=== PATIENT | female | born 1950 | race Caucasian/White ===

== ENCOUNTER 2018-09-12 05:35 | Day surgery (SDC) | payer MEDICARE, OTHER ==
[~2018-09-12] VITALS: Ht 167.6 cm; Wt 69.0 kg
[~2018-09-12 05:35] MED LIST: ASPIR-LOW81 MG PO; FISH OIL 1,0001 EAC3 PO; ONE DAILY MULT1 EAC1 PO; TYLENOL WITH C1 EACH PO; VITAMIN D31000 UNI1 PO; ZINC50 M1 PO
--- NOTE | 2018-09-12 09:02 | NUR ---
09/12/18 0902 Reny Nugent 0847 PT ARRIVES TO PACU, ALERT. VITAL SIGNS STABLE. LR INFUSING. PT DENIES PAIN OR NAUSEA AT THIS TIME. ABD SOFT, DRESSINGS IN PLACE, NO DRAINAGE NOTED. 0853 PT PLACED ON ROOM AIR AT THIS TIME. SATS MAINTAINING HIGH 90S. 0855 PT TEARFUL, DENIES PAIN. CONCERNED ABOUT . PT IS REASSURED. 0900 PT C/O BEING COLD, WARM BLANKETS AND ALY HUGGER APPLIED.
--- NOTE | 2018-09-12 09:21 | NUR ---
PT IS BACK TO FROM PACU, AWAKE AND ALERT. SHE IS TEARFUL UPON HER ARRIVAL, REPORTING THAT HER PAIN HAS INCREASED TO A 5/10. SHE IS C/O BEING COLD AND IS VERBALLY SHIVERING. BEAR HUGGER IS TURNED ON TO HELP WARM HER. IS AT THE BEDSIDE. WATER ON BEDSIDE TABLE. CALL LIGHT WITHIN REACH. NO ADDITIONAL NEEDS AT THIS TIME. WILL CONTINUE TO MONITOR.
--- NOTE | 2018-09-12 10:19 | NUR ---
PT REPORTS THAT THE PAIN MEDICINE IS HELPING AND HER PAIN LEVEL IS COMING DOWN. IS STILL AT THE BEDSIDE. PT IS TOLERATING SIPS OF WATER. NO ADDITIONAL NEEDS AT THIS TIME. DC CRITERIA IS DISCUESSED. WILL CONTINUE TO MONITOR.
--- NOTE | 2018-09-12 10:59 | OR ---
[facility] [address], [place] [address] Signed DATE OF OPERATION: 09/12/2018 SURGEON: Reginald Woodson MD PREOPERATIVE DIAGNOSIS: Acute on chronic cholecystitis. POSTOPERATIVE DIAGNOSES: 1. Acute on chronic cholecystitis. 2. Cholesterolosis. PROCEDURE: Laparoscopic cholecystectomy with intraoperative cholangiogram. ESTIMATED BLOOD LOSS: Minimal. FINDINGS: The intraoperative cholangiogram was unremarkable. There were no filling defects. No evidence of a choledochal cyst. The contrast flowed readily into the duodenum and rapidly filled her duodenal diverticula. We could see food debris in the duodenal diverticula. We could also see both her duodenum diverticula just to the right of the stomach as it came around to the duodenum. The gallbladder itself was quite thin and lying over top of these two duodenal diverticula, although slightly lateral. Unfortunately, the adhesions between the gallbladder and duodenal diverticula were quite thin and filamentous and easily taken down bluntly. The gallbladder itself was long, somewhat thin, chronically inflamed, and quite floppy. She did have some chronic scarring along the edge of the liver as well. INDICATIONS: Cash is a 67-year-old female, who is generally quite healthy. She has been having pain in the right upper quadrant radiating through to her back and along the right lateral costal margin. She had been to her primary care provider. Her urinalysis and her laboratory work were all negative. The right upper quadrant ultrasound showed the liver and gallbladder, common bile duct all unremarkable. No evidence of any stones. Possibly some sludge. Her symptoms continued even with Tylenol with Codeine. She therefore had a CT scan of the abdomen and pelvis and again the liver and gallbladder appear fine, but there appears to be two cystic structures near the liana hepatis with air-fluid levels. There are also closely apposed to the gallbladder, but seemed to be more associated with the duodenum. The transverse colon seemed uninvolved. There were Electronically Signed By: REGINALD WOODSON MD 09/12/18 1059 PATIENT NAME: CASH MOON OPERATIVE REPORT DATE OF : 46 REPORT #: [id number] PHYSICIAN: REGINALD WOODSON MD PCP: NEETA VU PAC REPORT IS CONFIDENTIAL AND NOT TO BE RELEASED WITHOUT AUTHORIZATION [facility] [address], [place] [address] Signed no inflammatory changes in the area. Followup HIDA scan was performed and the liver was unremarkable along with the main bile duct. Specifically, no evidence of choledochal cyst. The gallbladder filled, but the ejection fraction was only 8%. Drinking the Ensure did not reproduce her symptoms. We then had her undergo upper GI small bowel follow-through. The stomach and pyloric bulb were completely unremarkable. She indeed has multiple duodenal diverticula in the second portion of the duodenum. The largest is 7 cm in diameter. She also has numerous diverticula in the jejunum and then several smaller diverticula in her ileum. In the meantime, her pain has been intermittent and recurring requiring Tylenol with Codeine. I had met with Cash and her in the office. We had a long discussion regarding her current findings. I gave them a [employer] brochure on the gallbladder. I explained that duodenal diverticula have been present for many many years. I felt like her symptoms were more related to her gallbladder. I did consult with Dr. Darrian Tam at [facility]. We were both in agreement. It seemed very reasonable to remove her gallbladder and if her symptoms would persist, then we would have to more closely address the duodenal diverticula. Cash and her were in agreement. They understand the location and function of the gallbladder. They understand laparoscopic versus open cholecystectomy. There is risk of surgery including, but not limited to bleeding, infection, scarring, change in contour of the skin, damage to the bowel, damage to main bile duct, incisional hernias as well as damage and/or concerns over the duodenal diverticula. They had expressed understanding and wished to proceed. PROCEDURE NOTE: I have met with Cash and her in our preop area. All their questions were answered. After this, she was taken into the operating room and placed in a supine position under general endotracheal tube anesthesia. She was given preoperative antibiotics along with subcutaneous heparin. SCDs were utilized. Once again, her preoperative laboratory work was unremarkable. She was then prepped and draped in the usual sterile fashion. All trocars were placed in usual positions under direct visualization of camera without difficulty. We had taken multiple pictures throughout the surgery for photodocumentation. It was very easy to follow the stomach around to the pyloric bulb and then we could see her two large duodenal diverticula. The gallbladder was just lateral to that and the gallbladder was somewhat thin and somewhat flat over this area. The gallbladder was elevated in the right upper quadrant. Unfortunately, the adhesions between the duodenal diverticula and the gallbladder were quite thin and filamentous. There were easily taken down mostly with blunt dissection. We used a little bit of cautery down around the neck of the gallbladder. The cystic artery was identified, clipped and divided. The intraoperative cholangiocatheter was inserted into the common bile duct. The intraoperative cholangiogram was found to be unremarkable. Specifically, no evidence of any cystic areas in the cystic duct or the common bile duct. The contrast flowed readily into the duodenum and we could see the contrast filling into the duodenal diverticula. There appears to be some debris in the Electronically Signed By: REGINALD WOODSON MD 09/12/18 1059 PATIENT NAME: CASH MOON OPERATIVE REPORT DATE OF : 46 REPORT #: [id number] PHYSICIAN: REGINALD WOODSON MD PCP: NEETA VU PAC REPORT IS CONFIDENTIAL AND NOT TO BE RELEASED WITHOUT AUTHORIZATION [facility] [address], [place] [address] Signed more proximal duodenal diverticulum. After this, the cystic duct stump was secured with a PDS Endoloop and 2 clips were placed on the cystic duct stump to won its location. There was also a small posterior branch of the cystic artery coming up along the gallbladder and 2 clips were placed on this to secure this small branch. Fortunately, her gallbladder was not deep inside her liver and it was way out on the anterior edge of her liver. It only took a few minutes to remove that with the help of the cautery and we placed that into an EndoCatch bag. After this, the right upper quadrant was irrigated and suctioned out until clear. We then used our laparoscopic suturing device to pass 0 Vicryl suture on either side of the fascia of the subxiphoid trocar site. This was tied down to close this fascia primarily. All trocars were removed and the gas was allowed to escape. We then closed the supraumbilical trocar site with interrupted simple and [id number] 0 Vicryl sutures. Local anesthetic was copiously injected into all trocar sites. Each trocar site was irrigated and suctioned out until clear. The skin and dermis of each trocar site were closed with interrupted 3-0 subcuticular Monocryl sutures. Dry gauze and tape were applied to all incisions. In the meantime, our circulating nurse opened the gallbladder on the back table and had significant cholesterolosis. Again, pictures were taken for photodocumentation. After this, Cash was awakened from anesthesia, extubated in the OR, and taken to recovery room in stable condition. Reginald Woodson MD [facility]/MODL /[id number] cc: LUZ Angulo MD Brett Sheppard, MD Copies: NEETA VU ANDREW L MD Electronically Signed By: REGINALD WOODSON MD 09/12/18 1059 PATIENT NAME: CASH MOON OPERATIVE REPORT DATE OF : 46 REPORT #: [id number] PHYSICIAN: REGINALD WOODSON MD PCP: NEETA VU REPORT IS CONFIDENTIAL AND NOT TO BE RELEASED WITHOUT AUTHORIZATION [facility] [address] [place] [id number] Signed DARRIAN DAVID MD ~ Electronically Signed By: REGINALD WOODSON MD 09/12/18 1059 PATIENT NAME: CASH MOON OPERATIVE REPORT DATE OF : 46 REPORT #: [id number] PHYSICIAN: REGINALD WOODSON MD PCP: NEETA VU PAC REPORT IS CONFIDENTIAL AND NOT TO BE RELEASED WITHOUT AUTHORIZATION
--- NOTE | 2018-09-12 11:20 | NUR ---
IN TO CHECK ON PT. VITALS OBTAINED. PT STATES HER PAIN "SUBSIDED A LITTLE." ICE WATER REFILLED. AT BEDSIDE.
--- NOTE | 2018-09-12 12:12 | NUR ---
LE 1145: PT REQUESTS TO USE THE RESTROOM. SHE IS ASSISTED UP OOB, STANDBY ASSIST TO THE RESTROOM. SHE IS ABLE TO VOID QS SUFFICIENT, AND WALKS HERSELF BACK TO HER ROOM. PT INIDICATES THAT SHE WOULD LIKE TO GO HOME. SHE HAS BEEN ABLE TO TOLERATE JELLO AND WATER WITHOUT ISSUE. SHE HAS MET ALL DC CRITERIA. SHE IS EDUCATED ON HOW BEST TO DRESS HERSELF.
--- NOTE | 2018-09-12 12:14 | NUR ---
PT IS GIVEN VERBAL DC INSTRUCTIONS. THE PT AND HER VERBALIZE UNDERSTANDING. PT'S , KAYLEIGH, GOES TO GRAB THE VEHICLE. PT IS TAKEN TO VEHICLE VIA WC, SHE IS ABLE TO TRANSFER HERSELF FROM WC TO CAR.
== END 2018-09-12 12:00 | disposition home or self-care (01) ==
LOC: DS 05:35
PROVIDERS: Colon & Rectal Surgery
PROC: BF13YZZ Fluoroscopy of Gallbladder and Bile Ducts using Other Contrast (ICD-10-PCS; 2018-09-12)
PROC: 0FT44ZZ Resection of Gallbladder, Percutaneous Endoscopic Approach (ICD-10-PCS; principal; 2018-09-12 06:45)
DX: K81.2 Acute cholecystitis with chronic cholecystitis (principal); K57.10 Diverticulosis of small intestine without perforation or abscess without bleeding; K82.8 Other specified diseases of gallbladder; Z79.899 Other long term (current) drug therapy; Z79.82 Long term (current) use of aspirin
CPT/HCPCS: 00790; 74300; 88304; J0360; J0690; J1100; J1170; J1644; J1885; J2250; J2405; J2704; J3010; J7120; Q9967

== ENCOUNTER 2021-11-22 10:40 | Day surgery (SDC) | payer MEDICARE, OTHER ==
[~2021-11-22] VITALS: Ht 167.6 cm; Wt 72.7 kg
--- NOTE | ~2021-11-22 | OR ---
[facility] [address], [place] [address] Draft DATE OF OPERATION: 11/22/2021 SURGEON: Renae Sanchez MD PREOPERATIVE DIAGNOSIS: Trigger fingers, left ring and small. POSTOPERATIVE DIAGNOSIS: Trigger fingers, left ring and small. PROCEDURE PERFORMED: Trigger finger release, left ring and small. LAUNDERER HAND: None. ANESTHESIA: Amanda block. TOURNIQUET TIME: 20 minutes. BRIEF HISTORY: Cash is a 71-year-old female with locking in her left hand. She had prior trigger finger releases to other digits with good results. Risks and benefits of operative treatment were discussed with her, she elected to proceed. DESCRIPTION OF PROCEDURE: Once consent was obtained, she was taken to the operating room. After adequate anesthesia, she was placed on the hand table. The arm was prepped and draped in a standard sterile fashion. A 1 cm incision was made in the distal palmar crease. Under loupe magnification, dissection was made down to the flexor tendon sheath. The A1 alondra was identified and dissected free of overlying soft tissue was then released using tenotomy scissors. The wound was copiously irrigated with normal saline and the small finger was approached in a similar fashion and released. Both were then irrigated, closed with 3-0 nylon and injected with 4 mL of 0.25% plain Marcaine. They were then dressed with bacitracin, Adaptic, 4 x 8's, and gauze. She tolerated the procedure well. All sponge, needle, and instrument counts were correct. PATIENT NAME: CASH MOON OPERATIVE REPORT DATE OF : 46 REPORT #: [id number] PHYSICIAN: RENAE SANCHEZ MD PCP: EDWIN ORR PA-C REPORT IS CONFIDENTIAL AND NOT TO BE RELEASED WITHOUT AUTHORIZATION [address] [place], [place] [address] Draft Renae Sanchez MD BA/DONNA /[id number] Copies: ~ PATIENT NAME: CASH MOON OPERATIVE REPORT DATE OF : 46 REPORT #: [id number] PHYSICIAN: RENAE SANCHEZ MD PCP: EDWIN ORR PA-C REPORT IS CONFIDENTIAL AND NOT TO BE RELEASED WITHOUT AUTHORIZATION
[~2021-11-22 10:40] MED LIST changes: +HYDROCODON-ACE1 EA10 PO; +VITAMIN D325 MC2 PO
[2021-11-22] MEDS ORDERED: HYDROCODON-ACE1 EA10 PO (11:52)
--- NOTE | 2021-11-22 12:38 | NUR ---
11/22/21 1238 Vandana Washington 1151 PT ARRIVED IN PACU WIDE AWAKE WITH NO C/O'S. L ARM ELEVATED ON PILLOW WITH ICE PLACED. 1200 TALKING TO STAFF. DC INSTRUCTIONS GIVEN. ALL QUESTIONS ANSWERED. 1222 PT DRESSED. SLING TO L ARM. LEFT VIA W/C.
== END 2021-11-22 12:22 | disposition home or self-care (01) ==
LOC: DS 10:40
PROVIDERS: ATTEND Specialist
PROC: 0LN80ZZ Release Left Hand Tendon, Open Approach (ICD-10-PCS; 2021-11-22)
PROC: 0LN80ZZ Release Left Hand Tendon, Open Approach (ICD-10-PCS; principal; 2021-11-22 13:00)
DX: M65.342 Trigger finger, left ring finger (principal); M65.352 Trigger finger, left little finger
CPT/HCPCS: J0690; J1100; J1885; J2250; J2405; J2704; J2765; J3010; J7121

== ENCOUNTER 2023-12-22 08:38 | Day surgery (SDC) | payer MEDICARE, OTHER ==
[~2023-12-22] VITALS: Ht 167.6 cm; Wt 66.4 kg
[~2023-12-22 08:38] MED LIST changes: +CEFAZOLIN SODIUM 2 GM/20 ML SYR IV SCH; +IBLOOD GLUCOSE TEST STRIP 1 EA TEST VI PRN; +LACTATED RINGER'S 1,000 ML IV SCH; +LIDOCAINE HCL 1% 5 ML SDV INJ ONE
[2023-12-22 08:59] VITALS: BP 150/91
[2023-12-22] MEDS ORDERED: LIDOCAINE HCL 0.5% 50 ML SDV ONE (09:34)
[2023-12-22] MEDS ORDERED: HYDROCODONE/ACETA 5/325 TAB PO PRN (09:45)
[2023-12-22] MEDS ORDERED: NALOXONE HCL 0.4 MG SYR IV PRN (09:45)
[2023-12-22] MEDS ORDERED: DEXAMETHASONE SOD PHOS 4 MG/ML VIAL ONE (09:58)
[2023-12-22] MEDS ORDERED: propofoL 200 MG/20 ML VIAL ONE (09:58)
[2023-12-22] MEDS ORDERED: dexmedeTOMIDine HCl 200 MCG/2 ML VIAL ONE (10:00)
[2023-12-22] MEDS ORDERED: KETOROLAC TROMETHAMINE 30 MG/ML VIAL ONE (10:00)
[2023-12-22] MEDS ORDERED: HYDROCODON-ACE1 EA10 PO (10:24)
[2023-12-22 10:37] VITALS: BP 130/67
--- NOTE | 2023-12-22 10:37 | NUR ---
12/22/23 1037 LeandraShantal 1030 PT ARRIVED TO PACU ON RA, PT DENIES PAIN AND NAUSEA. VSS. 1037 PT SIPPING WATER AND ICE PLACED ON RIGHT HAND. PLAN OF CARE DISCUSSED.
[2023-12-22 10:47] VITALS: BP 120/68
--- NOTE | 2023-12-25 08:56 | OR ---
[facility] [address] [place], [place] [address] Signed DATE OF OPERATION: 12/22/2023 SURGEON: Renae Sanchez MD PREOPERATIVE DIAGNOSIS: Carpal tunnel syndrome, right. POSTOPERATIVE DIAGNOSIS: Carpal tunnel syndrome, right. PROCEDURE PERFORMED: Carpal tunnel release, right. WEIGHT COUNT OPERATOR: None. ANESTHESIA: Amanda block. TOURNIQUET TIME: 17 minutes. BRIEF HISTORY: Cash is a 73-year-old female with progressive worsening of pain and numbness in her hand. She had a lot of tingling as well. Risks and benefits of operative treatment were discussed with her and she elected to proceed. DESCRIPTION OF PROCEDURE: Once consent was obtained, she was taken to the operating room. After adequate anesthesia, she was prepped and draped in the standard sterile fashion. The carpal tunnel was approached through a 1.5 cm incision in the distal wrist crease, this was carried through the skin and subcutaneous tissue. Palmaris longus was identified, retracted and protected. The underlying transverse carpal ligament was then cleared of soft tissue volarly. Under direct loupe magnification, it was then released proximally a cm and distally to the distal extent of the carpal tunnel. This was done under direct loupe magnification. It was then palpated using a Roberts and found to be completely released. The wound was copiously irrigated with normal saline and closed with 3-0 nylon. The wound was then infiltrated with 5 mL of 0.25% plain Marcaine and dressed with bacitracin, Adaptic, 4 x 8s, and gauze. She tolerated the procedure well. All sponge, Electronically Signed By: RENAE SANCHEZ MD 12/25/23 0856 PATIENT NAME: CASH MOON OPERATIVE REPORT DATE OF : 46 REPORT #: [id number] PHYSICIAN: RENAE SANCHEZ MD PCP: EDWIN ORR PA-C REPORT IS CONFIDENTIAL AND NOT TO BE RELEASED WITHOUT AUTHORIZATION [facility] [address] [facility] [place], [place] [address] Signed needle, and instrument counts were correct. Renae Sanchez MD BA/MODL /[id number] Copies: ~ Electronically Signed By: RENAE SANCHEZ MD 12/25/23 0856 PATIENT NAME: CASH MOON OPERATIVE REPORT DATE OF : 46 REPORT #: [id number] PHYSICIAN: RENAE SANCHEZ MD PCP: EDWIN ORR PA-C REPORT IS CONFIDENTIAL AND NOT TO BE RELEASED WITHOUT AUTHORIZATION
== END 2023-12-22 11:04 | disposition home or self-care (01) ==
LOC: DS 08:38
PROVIDERS: ATTEND Specialist
PROC: 01N50ZZ Release Median Nerve, Open Approach (ICD-10-PCS; principal; 2023-12-22 11:40)
DX: G56.01 Carpal tunnel syndrome, right upper limb (principal); M19.90 Unspecified osteoarthritis, unspecified site; Z88.8 Allergy status to other drugs, medicaments and biological substances; Z79.899 Other long term (current) drug therapy
CPT/HCPCS: J0690; J1100; J1885; J2704; J7121